=== PATIENT | male | born 2000 | race Caucasian/White ===

== ENCOUNTER 2021-04-26 09:50 | Observation (INO) | payer OTHER, SELFPAY ==
[2021-04-26] VITALS (9 sets, daily range): BP systolic 99–124; BP diastolic 43–74; PULSE 66–100; RESP 12–18; TEMP 36.5–37.1; O2SAT 87–100; BMI 23.8
--- NOTE | ~2021-04-26 | XR_ITS ---
EXAMINATION: XR chest 2V EXAM DATE: 04/27/2021 09:11 INDICATION: chst pain, hypoxia . TECHNIQUE: Frontal and lateral projections of the chest obtained and reviewed. Comparison is made to prior examination from 04/26/2021. FINDINGS: Small amount of ill-defined left lower lobe reticulonodular pattern airspace disease, appe ars stable or with mild interval improvement. The lungs are otherwise clear. There are no pleural ef fusions. The cardiomediastinal silhouette is within normal limits. There is no pneumothorax suspect ed. The bones and soft tissues are unremarkable. IMPRESSION: Small left basilar opacities likely infectious process, stable or mild improvement. Reviewed, dictated and finalized at location G. IMPRESSION: Small left basilar opacities likely infectious process, stable or m ild improvement.
--- NOTE | ~2021-04-26 | XR_ITS ---
EXAMINATION: XR chest 2V EXAM DATE: 04/26/2021 11:22 INDICATION: Chest pain. TECHNIQUE: Frontal and lateral projections of the chest obtained and reviewed. There is no prior gilles dy for comparison. FINDINGS: Some small ill-defined left-sided airspace disease which could be developing acute infectio us process. Right lung is clear. There is no pneumothorax suspected. There are no pleural effusions. Cardiomediastinal silhouette is normal. IMPRESSION: Small ill-defined left-sided opacities suspicious for developing acute infectious process . Reviewed, dictated and finalized at location G. IMPRESSION: Small ill-defined left-sided opacities suspicious for developing ac [place] infectious process.
--- NOTE | 2021-04-26 09:55 | ED.AMS ---
HPI - Altered Mental Status General Stated Complaint: ambulance Time Seen by Provider: 04/26/21 09:55 Source: patient Mode of arrival: EMS Limitations: no limitations
--- NOTE | 2021-04-26 10:07 | ECG_ITS ---
Measurements Intervals [place] Rate: 103 P: 67 MD: 129 QRS: 83 QRSD: 90 T: 37 QT: 336 QTc: 441 Interpretive Statements SINUS TACHYCARDIA ST ELEVATION IN ANTEROLAT/INF LEADS CONSISTENT WITH INJURY, PERICARDITIS, OR EARLY REPOLARIZATION ABNORMAL ECG Electronically Signed On 04-26-2021 17:12:06 CDT by German Peace D.O.
--- NOTE | 2021-04-26 10:07 | ED.OVERDOSE ---
HPI - Overdose General Chief Complaint: Overdose Stated Complaint: ambulance Time Seen by Provider: 04/26/21 09:55 Source: patient and EMS Mode of arrival: EMS Limitations: no limitations History of Present Illness HPI Narrative: 22-year-old man brought to the emergency department after [place] Responders at the scene did CPR and resuscitation. He received 1 mg Narcan intranasal, then 1 mg Narcan IV. Patient spontaneous breathing and mental status. He was then brought to the emergency department. Patient states that he had a right knee injury at work and took a narcotic pill for the pain. he states the pill was from some les. Does not remember what happened after that until he woke up in the ambulance. States he has had some recent nasal congestion and cough. complaint: accidental overdose Onset (ago): hour(s) ( took the pill about 7:00 a.m.) Substance Ingested narcotic pill: Number of Pills Ingested: 1 Intent: other ( treating knee pain) How Overdose Was Discovered: other ( Found by bystanders) Context: Accidental Overdose: medication error Treatments Prior to Arrival: narcan Related Data Allergies Allergy/AdvReac Type Severity Reaction Status Date / Time No Known Allergies Allergy Verified 04/26/21 10:13 Review of Systems Constitutional: Constitutional: Denies chills and Denies fever(s) Eyes: Eyes: Denies change in vision and Denies photophobia ENT: Denies dysphagia, Reports nasal congestion ( negative COVID test 2 weeks ago) and Reports sore throat Cardiovascular: Cardiovascular: Reports chest pain and Denies radiating jaw, neck or arm pain Respiratory: Respiratory: Denies cough and Denies dyspnea Gastrointestinal: Gastrointestinal: Denies abdominal pain, Denies diarrhea, Denies nausea and Denies vomiting Musculoskeletal: Musculoskeletal: Denies back pain, Reports arthralgias ( right knee) and Denies joint swelling Integumentary/Breasts: Skin/Breast: Denies pruritus, Denies erythema and Denies rash Neurologic: Reports confusion Hematologic/Lymphatic: Hematologic/Lymphatic: Denies easy bleeding and Denies easy bruising Allergic/Immunologic: Allergic/Immunologic: Denies lip swelling and Denies throat swelling [facility] Surgical History Surgical History (Updated 04/26/21 @ 10:24 by Shar Brown MD) History of tonsillectomy Social History Social History (Updated 04/26/21 @ 10:13 by Shar Steiner) Smoking status: Current every day smoker Tobacco type: e-cigarettes/vaping Alcohol intake: former Substance use: current Substance use type: marijuana and painkillers Gender identity (if verbalized by the patient): Male Exam Const: General: healthy appearing and alert Orientation/consciousness: patient oriented x3 Other: mild acute distress. HENMT: Head: normal to inspection Ears: external ears normal, TM's normal bilaterally and EAC's normal General nose exam: Normal nares present Face and sinus: normal facial exam Mouth: Yes moist mucous membranes Other: Mild pharyngeal erythema without masses, exudate, swelling. Uvula is midline. Eyes: Conjunctivae: conjunctivae normal Pupils: Equal, round and reactive pupils present EOM: EOMs intact bilaterally Resp: Effort & Inspection: normal respiratory effort and not labored Auscultation: clear to auscultation bilaterally, no rales, no rhonchi and no wheezes Cardio: Rate: regular rate Rhythm: regular rhythm Heart sounds: no murmurs GI: GI Palp: Yes Soft to palpation and No Tenderness to palpation present (GI) Skin: General skin exam: normal color, no jaundice and no pallor Rashes: no rashes Other: Few bruises on left shoulder. Neuro: General: patient oriented x3, moves all extremities, no focal motor deficits and CN's II-XI intact bilaterally Speech: normal speech Gait exam (Neuro): Normal gait present Motor exam (neuro): 5/5 motor strength present througho
[2021-04-26 10:37] LABS: Hematocrit 45.7 % (40.0-54.0); Hemoglobin 15.5 g/dL (14.0-18.0); Mean Corpuscular HGB Conc 33.9 g/dL (32.0-36.0); Mean Corpuscular Hemoglobin 29.4 pg (27.0-31.0); Mean Corpuscular Volume 86.6 fL (78.0-102.0); Mean Platelet Volume 9.4 fl (8.7-11.0); Platelet Count Result 297 K/mm3 (150-420); Red Blood Count 5.28 M/mm3 (4.70-6.10); Red Cell Distribution Width 12.9 % (11.6-14.4)
[2021-04-26 10:38] LABS: White Blood Count 24.2 K/mm3 (4.8-10.8)
[2021-04-26 10:51] LABS: Alanine Aminotransferase 32 U/L (16-63); Albumin Level 4.2 g/dL (3.4-5.0); Alkaline Phosphatase 59 U/L (65-260); Anion Gap 8 mmol/L (8-16); Aspartate Amino Transferase 24 U/L (15-37); Bilirubin,Total 0.8 mg/dL (0.00-1.00); Blood Urea Nitrogen 10 mg/dL (7-18); Carbon Dioxide 31 mmol/L (21-32); Chloride 102 mmol/L (98-108); Estimated CRCL calculation 103 ml/min; Estimated Glomerular Filt Rate > 60; Glucose 152 mg/dL (70-99); Osmolality Calculated 294 mOsm/kg (285-295); Sodium 141 mmol/L (136-145); Total Protein 7.5 g/dL (6.4-8.2)
[2021-04-26 10:52] LABS: Acetaminophen < 2 ug/mL (10-30); Magnesium 1.9 mg/dL (1.8-2.4); Salicylate 0.8 mg/dL (2.8-20.0)
[2021-04-26 10:53] LABS: Ethanol < 3 mg/dL (0-6)
[2021-04-26] MEDS: ONDANSETRON HCL ODT 4 MG TABLET PO (11:03)
[2021-04-26 11:05] LABS: Add Urine Microscopic? YES; Appearance Urine Clear (Clear); Bilirubin Urine Negative (Negative); Blood Urine Negative (Negative); Color Urine Dark Yellow (Yellow); Glucose Urine UA 1+ (Negative); Ketones Urine Negative (Negative); Leukocyte Esterase Ur Negative LEU/UL (Negative); Nitrate Urine Negative (Negative); Protein Urine 1+ (Negative); Specific Grav Ur >= 1.030 (1.010-1.020); Urobilinogen Urine 0.2 mg/dL (0.2-1.0)
[2021-04-26 11:12] LABS: Amphetamine Screen Urine Negative (Negative); Barbiturate Screen Urine Negative (Negative); Benzodiazepines Screen Urine Negative (Negative); Cannabinoid Screen Urine Positive (Negative); Cocaine Screen Urine Negative (Negative); Methadone Screen Urine Negative (Negative); Opiate Screen Urine Negative (Negative); Phencyclidine Screen Urine Negative (Negative)
[2021-04-26 11:18] LABS: RBC Urine 0-2 /hpf (0-2); Squamous Epithelial Cell Urine Rare /hpf (Few); WBC Urine 0-3 /hpf (0-3)
[2021-04-26 11:19] LABS: Bacteria Urine None seen /hpf; Mucus Urine Moderate /lpf
--- NOTE | 2021-04-26 11:47 | PC.NURSE ---
patient noted to be sleeping, easily arousable. While sleeping O2 sat 87%, patient able to slowly recover but continued to fall asleep during exam. ERP informed and evaluating patient. NC 2L started. Plan to keep patient overnight for observation.
[2021-04-26 11:54] LABS: Total Cells Counted 100
[2021-04-26 11:55] LABS: Band Neutrophils Percent 0 % (0-6); Basophils Percent Manual 0 % (0-1); Eosinophils Percent Manual 0 % (1-6); Lymphocytes Absolute Manual 1.93 K/mm3 (1.1-4.5); Lymphocytes Percent Manual 8 % (18-44); Monocytes Absolute Manual 0.48 K/mm3 (0.1-0.90); Monocytes Percent Manual 2 % (3-9); Neutrophils Absolute Manual 21.78 K/mm3 (1.3-6.7); Neutrophils Percent Manual 90 % (46-73)
[2021-04-26 12:13] LABS: Lactic Acid Reflex 1.6 mmol/L (0.4-2.0)
[2021-04-26] MEDS: SODIUM CHLORIDE 0.9% IV 1,000 ML 150 ML IV CONT (12:26)
[2021-04-26 12:32] LABS: Platelet Estimate Adequate (Adequate)
[2021-04-26] MEDS: METOCLOPRAMIDE HCL INJ 10 MG/2 ML VIAL IV PUSH (12:36)
[2021-04-26] MEDS: PANTOPRAZOLE SODIUM IV 40 MG VIAL IV PUSH (12:36)
[2021-04-26 12:48] LABS: SARS-CoV-2 Ag Negative (Negative)
--- NOTE | 2021-04-26 13:00 | PC.NURSE ---
Patient admitted to room 207 from ED. Patient transferred self from wheelchair to bed, oriented to room and call light.
--- NOTE | 2021-04-26 13:45 | PM.IMHP ---
H&P: HPI History of Present Illness Date/Time: 04/26/21 13:45 Bentley Rivera is a 20 year old male who was brought to the hospital for drug overdose. Pt was found passed out in his car. Responders performed CPR, gave Narcan X2. 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 Pt states he purchased what he thought was and seemed to look like a Percocet pill. He also admits to smoking street Marijuana. Pt has a past family history of the following: Mother: crack addict and when he was 8 years old, Father: crack addict, Sister: Heroin addict, Brother 1: Drug abuse, Brother 2: no drug use history. Currently lives with his girlfriend at his adopted mothers home. Pt states he has a PMHx of Childhood Asthma and seasonal allergies. Pt complains of a little chest pain (likely due to CPR that was being performed on the scene [employer]), no SOB, fevers, chills, in the room he has had nausea and vomiting. He states he was treated for Chlamydia1 month ago. He denies any additional elicit or prescription drug use/abuse. Chief Complaint: Overdose Review of Systems Review of Systems: All systems reviewed & are unremarkable except as noted in HPI and below PMFSH Past Medical History Medical History (Updated 04/26/21 @ 14:22 by ABIEL Pozo) Asthma Had as a child Seasonal allergies Surgical History Surgical History History of tonsillectomy Family History Family History (Updated 04/26/21 @ 14:14 by ABIEL Pozo) Father Crack cocaine use CAD (coronary artery disease) Diabetes mellitus Hypothyroid Mother Crack cocaine use Sibling Heroin abuse Other Asthma Social History Social History Smoking packs per day: 2 Smoking cigarettes per day: 40.0 Smoking status: Former smoker Tobacco type: e-cigarettes/vaping Alcohol intake: never Substance use: current Substance use type: marijuana, sedatives and painkillers Living arrangements: with friend(s) Occupation/Education: occupation Gender identity (if verbalized by the patient): Male Spiritual care concerns: No Agree to blood products: No Meds Home Medications and Allergies Home Medications Medication Instructions Recorded Confirmed Type levofloxacin 750 mg PO DAILY #5 tablet 04/26/21 Rx Allergies Allergy/AdvReac Type Severity Reaction Status Date / Time No Known Allergies Allergy Verified 04/26/21 10:13 Vital Signs Vital Signs - 24 hr 04/26/21 09:50 04/26/21 11:45 04/26/21 11:49 Temperature 98.8 F Pulse Rate 100 80 Respiratory Rate 18 12 Blood Pressure 107/63 124/57 L Pulse Oximetry 94 87 L 100 04/26/21 12:40 Temperature Pulse Rate 70 Respiratory Rate 16 Blood Pressure 119/57 L Pulse Oximetry 100 Exam Const: General: cooperative, comfortable, no acute distress, alert, awake and Physically active Nutritional Appearance: average body habitus Chest: Chest palpation & inspection: normal inspection of the chest Resp: Effort & Inspection: normal respiratory effort Auscultation: clear to auscultation bilaterally Cardio: Rate: regular rate Heart sounds: S1 normal heart sound present and S2 normal heart sound present GI: GI Palp: Yes Soft to palpation and No Tenderness to palpation present (GI) Auscultation: normal bowel sounds Skin: General skin exam: other (Multiple hickies about the neck, back, chest) Neuro: General: oriented to person, oriented to place and oriented to time Cranial nerves: Yes CN's II-XII intact bilaterally Cognition (Neuro): normal cognition Speech: normal speech Motor exam (neuro): 5/5 motor strength present throughout Extrem: General: full ROM and no pedal edema Psych: Appearance: grossly normal Mental Status: mental status grossly normal Speech and movement: Normal speech and movement present Affect: normal affect Attitude: cooperati
[2021-04-26] MEDS: ONDANSETRON INJ 4 MG/2 ML VIAL IV PUSH (14:20)
[2021-04-26] MEDS: SODIUM CHLORIDE 0.9% IV 1,000 ML 100 ML IV CONT ×2 (14:20→23:34)
[2021-04-26] MEDS: SCOPOLAMINE 1.5 MG PATCH (16:54)
--- NOTE | 2021-04-26 21:15 | PC.NURSE ---
Patient A/O x4. C/o chest pain from CPR, no further pain voiced. Ambulates independently. Continues with telemetry and continuos pulse oximetry. Continue to monitor.
[2021-04-27 04:00] VITALS: BP 104/41; PULSE 84; RESP 18; TEMP 36.9; O2SAT 99
[2021-04-27 05:29] LABS: Basophils Absolute Auto 0.05 K/mm3 (0.00-0.10); Basophils Percent Auto 0.7 % (0.0-1.0); Eosinophils Absolute Auto 0.14 K/mm3 (0.02-0.50); Eosinophils Percent Auto 1.9 % (1.0-6.0); Hematocrit 43.2 % (40.0-54.0); Hemoglobin 14.4 g/dL (14.0-18.0); Immature Granulocyte Absolute 0.02 K/mm3 (0.00-0.00); Immature Granulocyte Percent A 0.3 % (0.0-0.0); Lymphocytes Absolute Auto 2.62 K/mm3 (1.10-4.50); Lymphocytes Percent Auto 36.5 % (18.0-42.0); Mean Corpuscular HGB Conc 33.3 g/dL (32.0-36.0); Mean Corpuscular Hemoglobin 29.1 pg (27.0-31.0); Mean Corpuscular Volume 87.4 fL (78.0-102.0); Mean Platelet Volume 9.5 fl (8.7-11.0); Monocytes Absolute Auto 0.66 K/mm3 (0.10-0.90); Monocytes Percent Auto 9.2 % (2.0-11.0); Neutrophils Absolute Auto 3.7 K/mm3 (1.7-7.2); Neutrophils Percent Auto 51.4 % (50.0-70.0); Platelet Count Result 246 K/mm3 (150-420); Red Blood Count 4.94 M/mm3 (4.70-6.10); White Blood Count 7.2 K/mm3 (4.8-10.8)
[2021-04-27 05:46] LABS: Alanine Aminotransferase 27 U/L (16-63); Albumin Level 3.6 g/dL (3.4-5.0); Alkaline Phosphatase 48 U/L (65-260); Anion Gap 8 mmol/L (8-16); Aspartate Amino Transferase 21 U/L (15-37); Bilirubin,Total 0.9 mg/dL (0.00-1.00); Blood Urea Nitrogen 5 mg/dL (7-18); Calcium 8.5 mg/dL (8.5-10.1); Carbon Dioxide 29 mmol/L (21-32); Chloride 105 mmol/L (98-108); Estimated CRCL calculation 142 ml/min; Estimated Glomerular Filt Rate > 60; Glucose 104 mg/dL (70-99); Osmolality Calculated 291 mOsm/kg (285-295); Potassium 3.7 mmol/L (3.5-5.1); Sodium 142 mmol/L (136-145); Total Protein 6.3 g/dL (6.4-8.2)
[2021-04-27 07:30] VITALS: BP 108/51; PULSE 55; RESP 18; TEMP 36.9; O2SAT 99
[2021-04-27] MEDS: LORATADINE 10 MG TABLET PO (08:45)
--- NOTE | 2021-04-27 09:00 | ECG_ITS ---
Measurements Intervals [place] Rate: 48 P: 15 CT: 101 QRS: 62 QRSD: 89 T: 54 QT: 468 QTc: 421 Interpretive Statements SINUS BRADYCARDIA WITH SHORT CT INTERVAL ST ELEVATION IN ANTEROLAT/INF LEADS- PROBABLY EARLY REPOLARIZATION ABNORMALITY BASELINE ARTIFACT- I, II, AVR, AVL, AVF ABNORMAL ECG Electronically Signed On 04-28-2021 8:07:08 CDT by German Peace D.O.
--- NOTE | 2021-04-27 09:39 | PM.DS ---
DS: Admitting Diagnosis Admitting Diagnosis Overdose <ABIEL Pozo - Last Filed: 04/27/21 14:30> DS: Discharge Diagnosis Discharge Diagnosis (1) Drug overdose: Qualifiers: Encounter type: initial encounter Injury intent: accidental or unintentional Qualified Code(s): T50.901A - Poisoning by unspecified drugs, medicaments and biological substances, accidental (unintentional), initial encounter <Grzegorz PablitoABIEL Godfrey - Last Filed: 04/27/21 14:30> Code(s): T50.901A - Poisoning by unspecified drugs, medicaments and biological substances, accidental (unintentional), initial encounter <Grzegorz PablitoABIEL Godfrey - Last Filed: 04/27/21 14:30> Status: Acute <Grzegorz PablitoABIEL Godfrey - Last Filed: 04/27/21 14:30> Assessment and Plan: Pt received Narcan X2, was still getting tired with decreased SpO2 in the upper 80s, Supplemental O2, CPR was performed on scene, telemetry monitoring, Q4H VS, Toxicology identified THC, additional toxicology to [facility]: Methadone, Suboxone, Fentanyl. 04/27/2021 Pt did well throughout the night, once asleep Pt did become bradycardic, encouraged Pt to return back to rehabilitation, Pt lives in [place], Pt on room air, additional toxicology has not resulted yet, discussed with Pt reasons NOT to purchase street drugs/medications <ABIEL Pozo - Last Filed: 04/27/21 14:30> (2) Pneumonia: Qualifiers: Laterality: left Lung location: lower lobe of lung Pneumonia type: due to unspecified organism Qualified Code(s): J18.9 - Pneumonia, unspecified organism <ABIEL Pozo - Last Filed: 04/27/21 14:30> Code(s): J18.9 - Pneumonia, unspecified organism <ABIEL Pozo - Last Filed: 04/27/21 14:30> Status: Acute <ABIEL Pozo - Last Filed: 04/27/21 14:30> Assessment and Plan: Possible aspiration from being unconscious in his car prior to first responders arriving and performing CPR, supplemental O2, Elevated WBC 24.2, Levaquin IV Q24H, Monitor VS Q4H 04/27/2021 will continue Levofloxacin on DC for additional 3 days, repeat chest complete <Grzegorz KenneyABIEL Godfrey - Last Filed: 04/27/21 14:30> (3) Dehydration: Code(s): E86.0 - Dehydration <Grzegorz Noalsco ARIS PenaC - Last Filed: 04/27/21 14:30> Status: Acute <Grzegorz Nolasco ARIS PenaC - Last Filed: 04/27/21 14:30> Assessment and Plan: 1 L IVF bolus in ER, continue NS 100/h, encourage PO fluids when Nausea/vomiting resolves, Zofran ordered 04/27/2021 Pt is able to tolerate PO liquids, tolerating PO solids without N/V <Grzegorz KenneyARIS GodfreyC - Last Filed: 04/27/21 14:30> (4) Seasonal allergies: Code(s): J30.2 - Other seasonal allergic rhinitis <rGzegorz KenneyARIS GodfreyC - Last Filed: 04/27/21 14:30> Status: Acute <Grzegorz KenneyARIS GodfreyC - Last Filed: 04/27/21 14:30> Assessment and Plan: Continue Claratin <Grzegorz KenneyARIS GodfreyC - Last Filed: 04/27/21 14:30> (5) Acute alteration in mental status: Code(s): R41.82 - Altered mental status, unspecified <Grzegorz KenneyABIEL Godfrey - Last Filed: 04/27/21 14:30> Status: Acute <Grzegorz KenneyZack Pena APN-C - Last Filed: 04/27/21 14:30> Assessment and Plan: Resolved at this time. Will monitor for status changes <Grzegorz PablitoABIEL Godfrey - Last Filed: 04/27/21 14:30> DS: Summary Hospital Course Hospital Course: Pt was observed for neurological and physiological changes related to his overdose. Pt did well. He was able to tolerate PO liquids and solids. <ABIEL Pozo - Last Filed: 04/27/21 14:30> Time Spent with Patient Time attestation: Total time spent providing and/or coordinating discharge services: < 30 minutes <Grzegorz Pena, LUCILLE-Shauna - Last Filed: 04/27/21 14:30> Exam Const: General: cooperative, healthy appearing, comfortable, no acute distress, well developed, alert, a
--- NOTE | 2021-04-29 14:33 | PC.NURSE ---
Pt states he received and understood the discharge instructions. Pt has no other comments.
== END 2021-04-27 11:10 | disposition home or self-care (01) ==
LOC: CHSED 11:51 → CHS2ND 11:58
PROVIDERS: Admitting Provider Emergency Medicine; Emergency Provider Emergency Medicine; Visit Provider Emergency Medicine
DX: T50.901A Poisoning by unspecified drugs, medicaments and biological substances, accidental (unintentional), initial encounter (principal); J18.9 Pneumonia, unspecified organism; E86.0 Dehydration; J30.2 Other seasonal allergic rhinitis; R40.4 Transient alteration of awareness; F17.290 Nicotine dependence, other tobacco product, uncomplicated; F12.90 Cannabis use, unspecified, uncomplicated; Z81.3 Family history of other psychoactive substance abuse and dependence
CPT/HCPCS: 36415; 71046; 80053; 80307; 80358; 81001; 83605; 83735; 85025; 87040; 87426; 93005; 96365; 96366; 96375; 99285; A9270; C9113; C9803; G0378; G0480; J1956; J2310; J2405; J2765; J7030